=== PATIENT | female | born 1985 | race Caucasian/White ===

== ENCOUNTER 2022-10-08 18:37 | Day surgery (SDC) | payer OTHER ==
[2022-10-08 19:18] VITALS: BMI 39.9
[2022-10-08] MEDS ORDERED: hydrALAZINE 20 MG/ML VIAL SLOW IVP PRN (19:43)
[2022-10-08 20:18] LABS: Creatinine, Urine 24.82 mg/dL (47-110); Protein, Urine Random Quant Less than 10 mg/dL (1-14)
[2022-10-08 21:09] LABS: #Eosinphils 0.1 10x3/uL (0.0-0.5); #Monocytes 1.3 10x3/uL (0.0-1.1); #Neutrophils 9.9 10x3/uL (1.5-8.4); %Basophils 0.3 % (0.0-2.0); %Eosinophils 0.9 % (0.0-6.0); %Lymphocytes 15.1 % (18.0-47.0); %Monocytes 9.4 % (0.0-10.0); %Neutrophils 72.8 % (40.0-75.0); Hemoglobin 10.4 g/dL (12.0-15.5); Mean Corpuscular HGB CONC 33.2 g/dL (32.0-36.0); Mean Corpuscular Hemoglobin 27.8 pg (27.0-33.0); Mean Corpuscular Volume 83.7 fl (81.6-98.3); Mean Platelet Volume 8.7 fl (7.4-10.4); Platelet Count 391 10x3/uL (150-450); RBC Distribution Width 13.4 % (11.5-14.5); Red Blood Cell (RBC) Count 3.74 10x6/uL (3.90-5.03); White Blood Cell (WBC) Count 13.6 10x3/uL (3.5-10.5)
[2022-10-08 21:21] LABS: ALT (SGPT) 11 U/L (8-55); AST (SGOT) 10 U/L (5-34); Albumin 3.3 g/dL (3.5-5.0); Alkaline Phosphatase 101 U/L (40-110); Anion Gap 12 mmol/L (10-20); BUN (Urea Nitrogen) 5 mg/dL (7.0-18.7); Bilirubin, Total 0.3 mg/dL (0.2-1.2); Calc. Creatinine Clearance 247 mL/min (70-130); Carbon Dioxide 21 mmol/L (22-29); Chloride 106 mmol/L (98-107); Estimated GFR 119; Globulin 3.3 g/dL (2.4-3.5); Glucose 97 mg/dL (70-105); Potassium 3.3 mmol/L (3.5-5.1); Protein, Total 6.6 g/dL (6.0-8.3); Sodium 136 mmol/L (136-145); Uric Acid 4.8 mg/dL (2.6-6.0)
== END 2022-10-08 22:47 | disposition home or self-care (01) ==
LOC: CSHLD/OP 18:37
PROVIDERS: ATTEND Obstetrics & Gynecology
DX: O13.3 Gestational [pregnancy-induced] hypertension without significant proteinuria, third trimester (principal); O24.415 Gestational diabetes mellitus in pregnancy, controlled by oral hypoglycemic drugs; Z79.82 Long term (current) use of aspirin; Z79.84 Long term (current) use of oral hypoglycemic drugs; Z79.899 Other long term (current) drug therapy; Z3A.34 34 weeks gestation of pregnancy
CPT/HCPCS: 80053; 82570; 84156; 84550; 85025; 99283

== ENCOUNTER 2022-10-10 08:30 | Emergency (ER) | payer OTHER ==
[2022-10-10 09:36] LABS: SARS-CoV-2 NAA Rapid Test Not Detected (NotDetected)
== END 2022-10-10 09:11 | disposition home or self-care (01) ==
LOC: CSHERS 08:30
DX: O99.513 Diseases of the respiratory system complicating pregnancy, third trimester (principal); J02.9 Acute pharyngitis, unspecified; O99.333 Smoking (tobacco) complicating pregnancy, third trimester; F17.210 Nicotine dependence, cigarettes, uncomplicated; Z20.822 Contact with and (suspected) exposure to COVID-19; Z3A.35 35 weeks gestation of pregnancy
CPT/HCPCS: 87081; 87430; 99283

== ENCOUNTER 2022-11-08 05:42 | Inpatient (IN) | payer OTHER ==
[2022-11-07 11:59] LABS: Hemoglobin 10.9 g/dL (12.0-15.5); Platelet Count 412 10x3/uL (150-450)
[2022-11-07 12:34] LABS: SARS-CoV-2 NAA Rapid Test Not Detected (NotDetected)
[2022-11-07 13:21] LABS: HBSAg Index 0.15 S/CO (0-0.99); Hep B Surf Ag Non-Reactive S/CO (NonReactive)
[2022-11-07 13:22] LABS: Syphilis Antibody Nonreactive (Nonreactive); Syphilis Antibody Index 0.05 S/CO (<1.00 Non-Reactive)
[2022-11-08 06:22] VITALS: BMI 39.9
[2022-11-08] MEDS ORDERED: CEFAZOLIN 2 GM VIAL ONE (06:30)
[2022-11-08] MEDS ORDERED: Famotidine/PF 20 mg/2ml Vial ONE (06:30)
[2022-11-08] MEDS ORDERED: Promethazine HCl 25 MG/ML VIAL IM PRN ×2 (06:46→07:06)
[2022-11-08] MEDS ORDERED: Misoprostol 200 MCG TAB PR PRN (06:46)
[2022-11-08] MEDS ORDERED: Diphenoxylate HCl/Atropine Tablet PO PRN (06:46)
[2022-11-08] MEDS ORDERED: Famotidine/PF 20 mg/2ml Vial SLOW IVP PRN (06:46)
[2022-11-08] MEDS ORDERED: hydrALAZINE 20 MG/ML VIAL SLOW IVP PRN (06:46)
[2022-11-08] MEDS ORDERED: Methylergonovine 0.2 MG/ML VIAL IM PRN (06:46)
[2022-11-08] MEDS ORDERED: Bicitra 30 ML UDCUP PO PRN (06:46)
[2022-11-08] MEDS ORDERED: Tranexamic Acid 1,000 MG in Sodium Chloride 0.9% 250 ML 250 ML IVPB PRN (06:46)
[2022-11-08] MEDS ORDERED: Docusate 100 MG CAP PO PRN (06:46)
[2022-11-08] MEDS ORDERED: Ondansetron PF 4 MG/2 ML Vial IVP PRN ×2 (06:46→07:06)
[2022-11-08] MEDS ORDERED: Carboprost 250 MCG/ML AMP IM PRN (06:46)
[2022-11-08] MEDS ORDERED: ePHEDrine Sulfate 50 MG/10 ML VIAL ONE (06:54)
[2022-11-08] MEDS ORDERED: Morphine PF 10 MG/10 ML VIAL ONE (06:54)
[2022-11-08] MEDS ORDERED: Ketorolac Tromethamine 30 MG/ML VIAL ONE (06:55)
[2022-11-08] MEDS ORDERED: Ondansetron PF 4 MG/2 ML Vial ONE (06:55)
[2022-11-08] MEDS ORDERED: Phenylephrine 40 MG/NS 250 ML 250 ML ONE (06:55)
[2022-11-08] MEDS ORDERED: Glycopyrrolate 0.2 MG/ML 5 ML SYRINGE ONE (06:55)
[2022-11-08] MEDS ORDERED: Oxytocin 10 UNITS/ML VIAL ONE (06:55)
[2022-11-08] MEDS ORDERED: PHENYLEPHRINE-NS 100 MCG/ML 10 ML SYRINGE ONE (06:55)
[2022-11-08] MEDS ORDERED: Dexamethasone 4 mg/ml Vial ONE (06:55)
[2022-11-08] MEDS ORDERED: NS w/ Oxytocin 30 units 500 ML IV SCH (07:00)
[2022-11-08] MEDS ORDERED: CEFAZOLIN 2 GM in Sodium Chloride 0.9% 100 ML IVPB SCH (07:00)
[2022-11-08] MEDS ORDERED: Ketorolac Tromethamine 30 MG/ML VIAL IVP PRN (07:06)
[2022-11-08] MEDS ORDERED: diphenhydrAMINE 50 MG/ML VIAL IVP PRN (07:06)
[2022-11-08] MEDS ORDERED: Fentanyl 100 MCG/2 ML VIAL SLOW IVP PRN (07:06)
[2022-11-08] MEDS ORDERED: Moisturizing Cream (Eucerin) 113 GM JAR TOP PRN (07:06)
[2022-11-08] MEDS ORDERED: Ondansetron HCl/PF 4 MG/2 ML Vial IVP PRN (07:06)
[2022-11-08] MEDS ORDERED: Meperidine HCl/PF 25 MG/ML VIAL SLOW IVP PRN (07:06)
[2022-11-08] MEDS ORDERED: Naloxone HCl 0.4 mg/ml Vial IV PRN (07:06)
[2022-11-08] MEDS ORDERED: Naloxone HCl 0.4 mg/ml Vial IVP PRN ×2 (07:06)
[2022-11-08] MEDS ORDERED: Promethazine HCl 25 MG SUPP PR PRN (07:06)
[2022-11-08] MEDS ORDERED: Communication Order-Pharmacy FS SCH (07:15)
[2022-11-08] MEDS ORDERED: Ketorolac Tromethamine 30 MG/ML VIAL IVP SCH (07:15)
[2022-11-08] MEDS ORDERED: diphenhydrAMINE 50 MG/ML VIAL ONE (09:26)
[2022-11-08] MEDS ORDERED: HYDROcodone/Acetaminophen 5/325 mg Tablet PO PRN ×2 (12:17)
[2022-11-08] MEDS ORDERED: Acetaminophen 325 MG TAB PO PRN (12:17)
[2022-11-08] MEDS ORDERED: Polyethylene Glycol 3350 17 GM Packet PO SCH (12:30)
[2022-11-08] MEDS ORDERED: Ferrous Sulfate 325 MG TAB PO SCH ×2 (12:30→21:00)
[2022-11-08] MEDS ORDERED: Prenatal Vitamin 1 TAB PO SCH (12:30)
[2022-11-08] MEDS: Simethicone Chewable 80 MG TAB PO SCH ×3 (13:01→21:36)
[2022-11-08] MEDS: Ibuprofen 800 MG TAB PO SCH ×2 (13:48→20:09)
[2022-11-08] MEDS: Docusate 100 MG CAP PO SCH (21:36)
[2022-11-08] MEDS: Polyethylene Glycol 3350 17 GM Packet PO SCH (21:39)
[2022-11-09] MEDS: Simethicone Chewable 80 MG TAB PO SCH ×6 (00:33→21:15)
[2022-11-09 04:38] LABS: Hemoglobin 8.7 g/dL (12.0-15.5); Mean Corpuscular HGB CONC 31.4 g/dL (32.0-36.0); Mean Corpuscular Hemoglobin 26.5 pg (27.0-33.0); Mean Corpuscular Volume 84.5 fl (81.6-98.3); Mean Platelet Volume 9.2 fl (7.4-10.4); Platelet Count 334 10x3/uL (150-450); Red Blood Cell (RBC) Count 3.28 10x6/uL (3.90-5.03); White Blood Cell (WBC) Count 14.7 10x3/uL (3.5-10.5)
[2022-11-09] MEDS: Ibuprofen 800 MG TAB PO SCH ×4 (05:27→21:15)
[2022-11-09] MEDS: Ferrous Sulfate 325 MG TAB PO SCH (07:41)
[2022-11-09] MEDS: Docusate 100 MG CAP PO SCH ×2 (07:42→21:15)
[2022-11-09] MEDS: Prenatal Vitamin 1 TAB PO SCH (09:47)
[2022-11-09] MEDS: Polyethylene Glycol 3350 17 GM Packet PO SCH ×2 (09:47→21:16)
[2022-11-09] MEDS: Acetaminophen 325 MG TAB PO SCH ×4 (09:47→21:14)
[2022-11-09] MEDS ORDERED: Boostrix 0.5 ML (Tdap) VIAL (>/=7 yrs of age) IM ONE (12:17)
[2022-11-10] MEDS: Acetaminophen 325 MG TAB PO SCH ×5 (01:11→17:15)
[2022-11-10] MEDS: Simethicone Chewable 80 MG TAB PO SCH ×4 (01:11→13:45)
[2022-11-10] MEDS: Ibuprofen 800 MG TAB PO SCH ×2 (05:30→13:45)
[2022-11-10] MEDS: Ferrous Sulfate 325 MG TAB PO SCH (09:25)
[2022-11-10] MEDS: Docusate 100 MG CAP PO SCH (09:25)
[2022-11-10] MEDS: Prenatal Vitamin 1 TAB PO SCH (09:25)
[2022-11-10] MEDS: Polyethylene Glycol 3350 17 GM Packet PO SCH (09:26)
[2022-11-10 16:57] VITALS: BP 130/86; TEMP 97.7
[2022-11-10] MEDS ORDERED: HYDROcodone/Acetaminophen 5/325 mg Tablet PO SCH (18:00)
== END 2022-11-10 18:15 | disposition home or self-care (01) | DRG 785 ==
LOC: CSHLD 05:42 → CSHPED 12:08
PROVIDERS: ADMIT Obstetrics & Gynecology; ATTEND Obstetrics & Gynecology
PROC: 10D00Z1 Extraction of Products of Conception, Low, Open Approach (ICD-10-PCS; principal; 2022-11-08)
PROC: 0UT70ZZ Resection of Bilateral Fallopian Tubes, Open Approach (ICD-10-PCS; 2022-11-08)
PROC: 0UT90ZZ Resection of Uterus, Open Approach (ICD-10-PCS; 2022-11-08)
PROC: 3E0334Z Introduction of Serum, Toxoid and Vaccine into Peripheral Vein, Percutaneous Approach (ICD-10-PCS; 2022-11-08)
DX: O34.211 Maternal care for low transverse scar from previous cesarean delivery (principal); O99.824 Streptococcus B carrier state complicating childbirth; O99.214 Obesity complicating childbirth; E66.9 Obesity, unspecified; Z20.822 Contact with and (suspected) exposure to COVID-19; O36.63X0 Maternal care for excessive fetal growth, third trimester, not applicable or unspecified; O24.425 Gestational diabetes mellitus in childbirth, controlled by oral hypoglycemic drugs; D64.9 Anemia, unspecified; O90.81 Anemia of the puerperium; Z3A.39 39 weeks gestation of pregnancy; Z37.0 Single live birth; Z79.84 Long term (current) use of oral hypoglycemic drugs
CPT/HCPCS: 36415; 36416; 51702; 85014; 85018; 85027; 85049; 85461; 86780; 86850; 86900; 86901; 87340; 88302; 90384; 96372; J1100; J1200; J1885; J2274; J2405; J2590; J3490; S0028; U0002